=== PATIENT | female | born 1935 | race Caucasian/White ===

== ENCOUNTER → 2024-04-24 12:07 | Outpatient (REF) | payer MEDICARE, OTHER, SELFPAY ==
[2024-04-24 13:04] LABS: % Basophils 0.5 % (0-2); % Eosinophils 2.4 % (0-6); % Immature Granulocytes 0.3 % (0-0.5); % Lymphocytes 19.8 % (20.5-51.1); % Monocytes 7.5 % (1.7-9.3); % Neutrophils 69.5 % (42.2-75.2); Absolute Eosinophils 0.2 10^3/uL (0-0.7); Absolute Lymphocytes 1.5 10^3/uL (1.2-3.4); Absolute Monocytes 0.6 10^3/uL (0.1-0.6); Absolute Neutrophils 5.3 10^3/uL (1.4-6.5); Hematocrit 39.1 % (37.0-47.0); Hemoglobin 13.7 g/dL (12.0-16.0); Mean Corpuscular Hgb 30.1 pg (27.0-31.0); Mean Corpuscular Volume 85.9 fL (81.0-99.0); Mean Platelet Volume 10.1 fL (7.4-10.4); Nucleated Red Blood Cells % 0 %; Platelet Count 166 10^3/uL (130-400); Red Blood Cell Count 4.55 10^6/uL (4.20-5.40); Red Cell Dist. Width 13.2 % (11.5-14.5); White Blood Cell Count 7.6 10^3/uL (4.8-10.8)
[2024-04-24 13:33] LABS: ALT (SGPT) 17 U/L (0-35); AST (SGOT) 23 U/L (14-36); Albumin 4.5 g/dl (3.5-5.0); Alkaline Phosphatase 81 U/L (38-126); Blood Urea Nitrogen 19 mg/dl (7-17); Calcium 9.4 mg/dl (8.4-10.2); Carbon Dioxide 25 mmol/L (22-30); Chloride 96 mmol/L (98-107); Glucose 104 mg/dl (70-99); HDL Cholesterol 73 mg/dl; LDL Cholesterol, Calculated 66 mg/dl; Potassium 4.7 mmol/L (3.5-5.1); Sodium 134 mmol/L (135-145); Total Cholesterol 163 mg/dl (50-199); Total Protein 6.8 g/dl (6.3-8.2); Triglyceride 120 mg/dl (10-149); Very Low Density Lipoprotein 24 mg/dl (0-30); eGFR > 60.00
[2024-04-24 13:58] LABS: TSH Reflex To Free T4 0.04 uIU/ml (0.47-4.68)
[2024-04-24 14:27] LABS: Free T4 1.18 ng/dl (0.78-2.19)
== END ==
LOC: REG 12:07
PROVIDERS: ATTENDING PHYSICIAN Internal Medicine; REFERRING PHYSICIAN Internal Medicine Critical Care Medicine
DX: I10 Essential (primary) hypertension (principal); M35.3 Polymyalgia rheumatica; M53.83 Other specified dorsopathies, cervicothoracic region; R73.9 Hyperglycemia, unspecified
CPT/HCPCS: 36415; 80053; 80061; 84439; 84443; 85025

== ENCOUNTER → 2024-05-15 11:34 | Outpatient (REF) | payer OTHER, SELFPAY | LOC: RAD 11:34 | PROVIDERS: ATTENDING PHYSICIAN Nurse Practitioner Adult Health; FAMILY PHYSICIAN Internal Medicine | DX: R06.02 Shortness of breath (principal) | CPT/HCPCS: 71046 ==

== ENCOUNTER → 2024-06-01 09:41 | Outpatient (REF) | payer OTHER, SELFPAY | LOC: RAD 09:41 | PROVIDERS: ATTENDING PHYSICIAN Surgery Vascular Surgery; FAMILY PHYSICIAN Internal Medicine | DX: I72.8 Aneurysm of other specified arteries (principal) | CPT/HCPCS: 74174; Q9967 ==

== ENCOUNTER → 2024-06-05 13:24 | Outpatient (REF) | payer OTHER, SELFPAY | LOC: RAD 13:24 | PROVIDERS: ATTENDING PHYSICIAN Internal Medicine | DX: E05.90 Thyrotoxicosis, unspecified without thyrotoxic crisis or storm (principal) | CPT/HCPCS: 76536 ==

== ENCOUNTER 2024-06-07 03:04 | Inpatient (IN) | payer OTHER, SELFPAY ==
[2024-06-06 20:24] VITALS: BP 141/68
--- NOTE | 2024-06-06 20:24 | ED.GENMED ---
ED Provider Triage
<Rebecca Momin PA-C - Last Filed: 06/06/24 20:31>
-
Patient seen by provider in Triage?: Seen in Triage
Attestation: A medical screening examination has been initiated by a qualified medical provider. Based on the assessment performed at this time, it has been determined that an emergent medical condition may exist and the patient has been informed
that further medical evaluation and possible additional diagnostic testing may be needed.
HPI: 88yoF c/o flu-like symptoms starting yesterday. C/o fevers up to 101 and chills. C/o slight dyspnea. Pulse ox low at 60% at home. Home COVID test negative. Hx of COPD and bronchiectasis.
GENERAL: Alert , in no apparent distress
EYE: No visual abnormalities.
NECK: Trachea midline
ENT: No visible abnormalities.
LUNGS: No acute respiratory distress
NEUROLOGICAL: Alert and oriented
SKIN: Skin intact. No visible changes.
MUSCULOSKELETAL: Moving extremities normally
PSYCH: Normal and appropriate interaction.
This is a medical evaluation conducted in person to initiate diagnostic evaluation and provide initial therapeutics. Please see further documentation by the treating clinician.
Pulse ox 79-80% in triage. Cardiac labs, EKG, COVID/flu swab, and CXR ordered. Patient sent directly to ED exam room.
History of Present Illness
<Rebecca Momin PA-C - Last Filed: 06/06/24 20:31>
General
Chief Complaint: Breathing Problem
Time Seen by Provider: 06/06/24 21:04
<Bryce Bennett DO - Last Filed: 06/07/24 02:12>
General
Source: patient and family
History of Present Illness
History of Present Illness:
88-year-old female presents with shortness of breath and hypoxia. The patient noticed that she had had increased shortness of breath with exertion. Family states that she knows that she was winded with just minor walking and tried measuring her
pulse ox. They had a measurement of 60%. Patient reports a fever of 101 at home but is afebrile on arrival here. Patient denies chest pain. She does have a history of bronchiectasis and follows with pulmonology. Denies leg swelling. Denies
hemoptysis. Patient also admits that she is being treated with Macrobid for UTI.
Past History
<Rebecca Momin PA-C - Last Filed: 06/06/24 20:31>
Past History
ED Past Medical History: GERD, HTN and Other (PMR, arthritis, spinal stenosis)
ED Past Surgical History: Bowel resection and Orthopedic; Negative Appendectomy
Social History
Tobacco: Former smoker
Alcohol: None
Drug: None
Personal:
Living: alone
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
Family History
Family History: Hypertension
<Bryce Bennett DO - Last Filed: 06/07/24 02:12>
Past History
ED Past Medical History: Other (PMR, arthritis, spinal stenosis, restrictive lung disease, bronchiectasis)
Phy Exam
<Bryce Bennett DO - Last Filed: 06/07/24 02:12>
Physical Exam
Physical Exam:
CONSTITUTIONAL Patient alert and oriented to person, place and time. Well-appearing. Vital signs reviewed. Hypoxia to 85% on room air noted
HEAD atraumatic, normocephalic.
EYES eyelids normal to inspection, Extraocular muscles intact, Conjunctiva normal, Sclera normal.
NECK normal range of motion, Trachea midline, no jugular venous distention.
RESPIRATORY CHEST No respiratory distress noted, Chest expansion equal, wheezes and crackles noted bilaterally
CARDIOVASCULAR regular rate and rhythm, Heart sounds normal.
ABDOMEN abdomen nontender, Bowel sounds normal. No distention.
BACK normal inspection, no obvious deformities
UPPER EXTREMITY range of motion normal, Motor strength normal, no cyanosis, no edema.
LOWER EXTREMITY range of motion normal, Motor strength normal, no cyanosis, no edema.
NEURO Speech normal, No focal motor deficits, Rosemary coma scale 15, Memory normal, Cranial Nerves intact to screening exam.
SKIN skin warm, dry, and normal in color.
Scores
<Bryce Bennett DO - Last Filed: 06/07/24 02:12>
Heart Failure Risk
Heart Failure Risk Score: Yes
History of Stroke or TIA: No
History of intubation for respiratory distress: No
Heart rate on ED arrival >/= 110: No
SaO2 <90% on arrival on room air: Yes
HR >/=110 during 3min walk test (or too ill to perform test): Yes
ECG has acute ischemic changes: No
Urea >/=12mmol/L (BUN 33.6mg/dL): No
Serum CO2>/=35mmol/L: No
Troponin I or T elevated to GA Level (0.4mg/dL): No
NT-proBNP >/=5,000ng/L (5,000pg/ml): No
HF Risk Score: 3
Admission Status: HIGH RISK 15.9% Consider SNF treatment or admission to hospital
Course
<Rebecca Momin PA-C - Last Filed: 06/06/24 20:31>
Orders/Labs/Results
Orders:
Orders
06/06/24 20:27
Electrocardiogram (*1) Urgent
Reason for Study: Shortness of Breath
EKG- Treatment ONCE
CR Chest - 2 Views Urgent
Comment:
Reason For Exam: SOB
06/06/24 20:35
COVID-19 Antigen Urgent
Source: Nasal Swab
Complete Blood Count/With Diff Urgent
Comprehensive Metabolic Panel Urgent
NT-proBNP Urgent
Comment: ADD ON
Troponin I Urgent
Influenza A+B Rapid Molecular Urgent
CHRISTIAN Source: Nasal Swab
Specimen Description:
06/06/24 22:05
Add On- LAB Urgent
Tests Added?: bnp
06/06/24 22:29
Ipratropium/Albuterol Sulfate [Duoneb] 3 ml INH R NOW STA
06/06/24 23:27
Furosemide [Lasix] 40 mg IV NOW STA
06/06/24 23:43
Urinalysis Reflex To Culture Urgent
Date Specimen was Collected: 06/06/24
Time Specimen was Collected: 23:54
06/07/24 00:10
Urine Microscopic Reflex Cult Urgent
Urine Culture Urgent
CHRISTIAN Source: U
Specimen Description:
Date Specimen was Collected: 06/06/24
Time Specimen was Collected: 23:54
06/07/24 00:48
Dexamethasone Sod Phosphate [Decadron] 10 mg IV NOW STA
06/07/24 01:04
CefTRIAXone [Rocephin] 1,000 mg IV NOW STA
Abnormal Lab Results
06/06/24 06/07/24
20:35 00:10
WBC 15.1 H 10^3/uL
(4.8-10.8)
RBC 4.18 L 10^6/uL
(4.20-5.40)
Abs Immat Gran (auto) 0.1 H 10^3/uL
(0-0.05)
Absolute Neuts (auto) 13.3 H 10^3/uL
(1.4-6.5)
Absolute Lymphs (auto) 1.1 L 10^3/uL
(1.2-3.4)
Neutrophils % 87.7 H %
(42.2-75.2)
Lymphocytes % 7.3 L %
(20.5-51.1)
Sodium 130 L mmol/L
(135-145)
Chloride 96 L mmol/L
(98-107)
BUN 24 H mg/dl
(7-17)
Glucose 173 H mg/dl
(70-99)
Leukocyte Esterase Rfl 2+ A
(Negative)
Urine RBC 3-6 A /HPF
(0-2)
Urine WBC (Reflex) >100 A /HPF
(0-5)
Urine Bacteria (Reflex) Many A
(Negative)
06/06/24 20:35
06/06/24 20:35
Vital Signs
Initial and Last Documented VS:
Initial Vital Signs
Temp Pulse Resp BP Pulse Ox
98.7 F 79 18 141/68 80
06/06/24 20:24 06/06/24 20:24 06/06/24 20:24 06/06/24 20:24 06/06/24 20:24
Last Documented Vital Signs
Temp Pulse Resp BP Pulse Ox
98.7 F 74 15 115/54 95
06/06/24 20:24 06/06/24 23:34 06/06/24 23:15 06/06/24 23:34 06/06/24 23:15
<Bryce Bennett, DO - Last Filed: 06/07/24 02:12>
Orders/Labs/Results
Orders:
Orders
06/06/24 20:27
Electrocardiogram (*1) Urgent
Reason for Study: Shortness of Breath
EKG- Treatment ONCE
CR Chest - 2 Views Urgent
Comment:
Reason For Exam: SOB
06/06/24 20:35
COVID-19 Antigen Urgent
Source: Nasal Swab
Complete Blood Count/With Diff Urgent
Comprehensive Metabolic Panel Urgent
NT-proBNP Urgent
Comment: ADD ON
Troponin I Urgent
Influenza A+B Rapid Molecular Urgent
CHRISTIAN Source: Nasal Swab
Specimen Description:
06/06/24 22:05
Add On- LAB Urgent
Tests Added?: bnp
06/06/24 22:29
Ipratropium/Albuterol Sulfate [Duoneb] 3 ml INH R NOW STA
06/06/24 23:27
Furosemide [Lasix] 40 mg IV NOW STA
06/06/24 23:43
Urinalysis Reflex To Culture Urgent
Date Specimen was Collected: 06/06/24
Time Specimen was Collected: 23:54
06/07/24 00:10
Urine Microscopic Reflex Cult Urgent
Urine Culture Urgent
CHRISTIAN Source: U
Specimen Description:
Date Specimen was Collected: 06/06/24
Time Specimen was Collected: 23:54
06/07/24 00:48
Dexamethasone Sod Phosphate [Decadron] 10 mg IV NOW STA
06/07/24 01:04
CefTRIAXone [Rocephin] 1,000 mg IV NOW STA
Abnormal Lab Results
06/06/24 06/07/24
20:35 00:10
WBC 15.1 H 10^3/uL
(4.8-10.8)
RBC 4.18 L 10^6/uL
(4.20-5.40)
Abs Immat Gran (auto) 0.1 H 10^3/uL
(0-0.05)
Absolute Neuts (auto) 13.3 H 10^3/uL
(1.4-6.5)
Absolute Lymphs (auto) 1.1 L 10^3/uL
(1.2-3.4)
Neutrophils % 87.7 H %
(42.2-75.2)
Lymphocytes % 7.3 L %
(20.5-51.1)
Sodium 130 L mmol/L
(135-145)
Chloride 96 L mmol/L
(98-107)
BUN 24 H mg/dl
(7-17)
Glucose 173 H mg/dl
(70-99)
Leukocyte Esterase Rfl 2+ A
(Negative)
Urine RBC 3-6 A /HPF
(0-2)
Urine WBC (Reflex) >100 A /HPF
(0-5)
Urine Bacteria (Reflex) Many A
(Negative)
06/06/24 20:35
06/06/24 20:35
Vital Signs
Initial and Last Documented VS:
Initial Vital Signs
Temp Pulse Resp BP Pulse Ox
98.7 F 79 18 141/68 80
06/06/24 20:24 06/06/24 20:24 06/06/24 20:24 06/06/24 20:24 06/06/24 20:24
Last Documented Vital Signs
Temp Pulse Resp BP Pulse Ox
98.7 F 74 15 115/54 95
06/06/24 20:24 06/06/24 23:34 06/06/24 23:15 06/06/24 23:34 06/06/24 23:15
<Bryce Bennett DO - Last Filed: 06/07/24 02:12>
MDM/Problems Addressed
Differential Diagnosis Includes:
Pneumonia, PE, CHF, bronchitis, pyelonephritis
MDM/Problems Addressed:
Acute CHF, hypoxia, bronchiectasis, urinary tract infection
<Bryce Bennett DO - Last Filed: 06/07/24 02:12>
*Radiology
Radiology exam reviewed: radiology read reviewed
*Pulse Oximetry
Patient hypoxic: yes
*EKG
Interpreted by ED Provider?: Yes
Interpretation: normal
Rate: normal
Interval: normal interval
QRS Pattern: normal QRS
Ischemia: no ischemia
*Mirror Painter Interpretation
Rate: normal
Interpretation: normal
Rhythm: sinus
*Critical Care Note
Total Time (30-74mins, 75-104mins- exclusive of procedures): Not Applicable
Data Reviewed
Review of Other/Old Records Reveals: Records and Discharge Summary (Discharge summary reviewed from August 2018)
Source: patient
<Bryce Bennett DO - Last Filed: 06/07/24 02:12>
Patient Management
Discussion with other providers: Hospitalist
Escalation/DeEscalation of care consider admission/obs:
88-year-old female presents with shortness of breath. Found be hypoxic required oxygen. No signs of RV failure but BNP is elevated. Reports fever at home but she is afebrile here. No infiltrates noted on chest x-ray by radiology. Her white
count is elevated but patient has been treated for UTI with Macrobid. Given her age I do feel that she is better warranted on ceftriaxone or an alternative. Admit. Dose of steroids given in light of her long history. Suspect her hypoxia is
multifactorial
ED Attending Note
<Rebecca Momin PA-C - Last Filed: 06/06/24 20:31>
-
Portions of this chart may have been created with voice recognition software.� Occasional wrong word or��sound alike� substitutions may have occurred due to the inherent limitations of voice recognition software.
Discharge Plan
Departure
Patient Disposition: Admit
Date of Disposition: 06/07/24
Time of Disposition: 00:18
Presentation/result/management discussed w/ accepting MD/DO: Hospitalist
Discharge Problem:
Hypoxia, CHF (congestive heart failure), Bronchiectasis
Prescriptions:
No Action
biotin 5 MG capsule
5 mg PO DAILY Qty: 0
B-complex with vitamin C 1 CAPLET tablet
1 cap PO DAILY Qty: 0
[id number]-ast [MegaRed [place]-3 Krill Oil] 1 EACH capsule
1 ea PO DAILY Qty: 0
cholecalciferol (vitamin D3) 1,000 UNITS tablet
1,000 units PO DAILY
aspirin 81 MG tablet,delayed release (DR/EC)
81 mg PO DAILY
losartan 25 MG tablet
25 mg PO DAILY
guaifenesin [Mucinex] 1,200 MG tablet extended release 12hr
600 mg PO PRN PRN (Reason: cough)
Align (B.infantis) 4 MG capsule
4 mg PO DAILY
calcium carb-mag ox-zinc sulf 1 EACH tablet
1 ea PO DAILY
nitrofurantoin 100 mg Capsule
100 mg PO BID
Patient Comments:
for UTI
albuterol sulfate 90 mcg/actuation Hfa Aerosol Inhaler
2 puff INHALATION QID PRN (Reason: SOB/wheeze )
Trelegy Ellipta 100-62.5-25 mcg Blister With Device
1 inh INHALATION DAILY
Referrals:
Josette Sigala MD [Family Provider] -
Interventions
Interventions:
*Risk Screen - Suicide Last Done: 06/06/24 20:24
*General Assessment Last Done: 06/06/24 20:24
*Neglect/Abuse Screening Last Done: 06/06/24 23:20
ED- Fall Risk Assessment Last Done: 06/06/24 23:20
*ED COVID-19 Vaccine History Last Done: 06/06/24 20:24
ED- Cardiac Assessment Last Done: 06/06/24 23:20
ED- Pulmonary Assessment Last Done: 06/06/24 23:20
Discharge Date and Time
Print Language: SCOTTISH
[2024-06-06 20:40] VITALS: BP 157/75
[2024-06-06 20:54] LABS: % Basophils 0.4 % (0-2); % Eosinophils 0.8 % (0-6); % Immature Granulocytes 0.4 % (0-0.5); % Lymphocytes 7.3 % (20.5-51.1); % Monocytes 3.4 % (1.7-9.3); % Neutrophils 87.7 % (42.2-75.2); Absolute Basophils 0.1 10^3/uL (0-0.2); Absolute Eosinophils 0.1 10^3/uL (0-0.7); Absolute Immature Granulocytes 0.1 10^3/uL (0-0.05); Absolute Lymphocytes 1.1 10^3/uL (1.2-3.4); Absolute Monocytes 0.5 10^3/uL (0.1-0.6); Absolute Neutrophils 13.3 10^3/uL (1.4-6.5); Hemoglobin 12.6 g/dL (12.0-16.0); Mean Corp Hgb Conc. 34.1 g/dL (33.0-37.0); Mean Corpuscular Hgb 30.1 pg (27.0-31.0); Mean Corpuscular Volume 88.5 fL (81.0-99.0); Nucleated Red Blood Cells % 0 %; Platelet Count 146 10^3/uL (130-400); Red Blood Cell Count 4.18 10^6/uL (4.20-5.40); Red Cell Dist. Width 13.5 % (11.5-14.5); White Blood Cell Count 15.1 10^3/uL (4.8-10.8)
[2024-06-06 21:08] VITALS: BP 142/65
[2024-06-06 21:12] LABS: COVID-19 Antigen Negative (Negative)
[2024-06-06 21:13] LABS: ALT (SGPT) 17 U/L (0-35); AST (SGOT) 21 U/L (14-36); Alkaline Phosphatase 65 U/L (38-126); Blood Urea Nitrogen 24 mg/dl (7-17); Carbon Dioxide 23 mmol/L (22-30); Chloride 96 mmol/L (98-107); Glucose 173 mg/dl (70-99); Sodium 130 mmol/L (135-145); Total Bilirubin 1.2 mg/dl (0.2-1.3); Total Protein 6.4 g/dl (6.3-8.2); eGFR > 60.00
[2024-06-06 21:18] LABS: Troponin I 0.012 ng/ml
[2024-06-06 22:00] VITALS: BP 134/59
[2024-06-06] MEDS: DUONEB 3 ML INH (22:50)
[2024-06-06 22:54] LABS: NT-proBNP 1520 pg/ml
[2024-06-06 23:00] VITALS: BP 150/64
[2024-06-06 23:30] VITALS: BP 115/54
[2024-06-06] MEDS: LASIX 40 MG IV (23:34)
[2024-06-07] VITALS (8 sets, daily range): BP systolic 108–132; BP diastolic 51–76; BMI 27.7
[2024-06-07 00:28] LABS: Urine Albumin Negative (Neg - Trace); Urine Bilirubin Negative (Negative); Urine Character Clear (Clear); Urine Color Yellow; Urine Glucose Negative (Negative); Urine Ketone Negative (Negative); Urine Leukocyte 2+ (Negative); Urine Nitrite Negative (Negative); Urine Occult Blood Negative (Negative); Urine Urobilinogen Negative (Neg - 1+)
[2024-06-07 00:55] LABS: Urine Bacteria Many (Negative); Urine Squamous Cell >30 /LPF (Few); Urine White Cell >100 /HPF (0-5)
[2024-06-07] MEDS: DECADRON 10 MG IV (00:57)
[2024-06-07] MEDS: ROCEPHIN 1000 MG IV ×2 (01:51→23:38)
--- NOTE | 2024-06-07 02:46 | HPS.HSE ---
Family Physician
-
Family Physician: Josette Sigala
Chief Complaint
-
SOB, Myalgias
History of Present Illness
Patient is an 88y F with PMH significant for COPD and bronchiectasis who presents to ED complaining of chills, myalgias and SOB. Patient states that started to feel poorly about 2 days ago. She had diffuse muscle aches and shaking chills at
home. She took some Aleve and felt improved for a time. Not much in the way of cough / mucus. No N/V/D. She has had some dysuria and reports recurrent UTIs - was started on Macrobid a few days ago for this and feels that these symptoms are
better.
Today patient felt extremely fatigued and had difficulty getting up and around. She was walking around the senior facility where she lives and noted that she became significantly short of breath.
She presented to the ED for further evaluation and treatment.
Patient states that multiple residents of her building have recently had COVID / Flu.
In the ED, patient is sleeping comfortably / lying supine at the time of my exam.
She states that she is feeling improved from admission. On initial arrival, patient had SpO2 of 80% on room air - currently in the low 90s on supplemental oxygen.
Medical History
Past Medical History
Past Medical History: Reports Other
Additional Past Medical History:
COPD
Bronchiectasis
Spinal Stenosis
Hypertension
Diverticular Disease
KALI
Past Surgical History: Reports Other
Additional Past Surgical History:
Left TKA Repair / Re-do
Right TKA
Left Rotator Cuff
Sigmoid Resection (tics)
Ventral Hernia Repair
T&A
Cataracts
Social History
Tobacco: Former Smoker (Quit > 10 years ago.)
Alcohol: Occasional
Drug: None
Family History
Family History: Not pertinent
Allergies / Home Medications
Allergies reflects when Allergies were last updated in [employer].
Home Medications with original date entered in [employer]
Allergy/Medication List:
Allergies
Allergy/AdvReac Type Severity Reaction Status Date / Time
vancomycin Allergy Itching, Verified 02/06/20 07:14
Hives
Home Medications
B-complex with vitamin C 1 cap PO DAILY ##0 04/01/16
biotin 5 mg capsule 5 mg PO DAILY ##0 04/01/16
krill 300 mg-omega 3 90 mg-dha 24 mg-epa 50 cs-ezigijd-kwxdr capsule (MegaRed [place]-3 Krill Oil) 1 ea PO DAILY ##0 04/01/16
cholecalciferol (vitamin D3) 25 mcg (1,000 unit) tablet 1,000 units PO DAILY 07/13/18
Bifidobacterium infantis 4 mg capsule (Align (B.infantis)) 4 mg PO DAILY 02/05/20
aspirin 81 mg tablet,delayed release 81 mg PO DAILY 02/05/20
calcium 333 mg (carbonate)-magnesium 133 mg-zinc 5 mg (sulfate) tablet 1 ea PO DAILY 02/05/20
guaifenesin 1,200 mg tablet, extended release 12 hr (Mucinex) 600 mg PO PRN PRN cough 02/05/20
losartan 25 mg tablet 25 mg PO DAILY 02/05/20
albuterol sulfate 90 mcg/actuation aerosol inhaler 2 puff inhalation QID PRN SOB/wheeze 06/06/24
fluticasone fur. 100 mcg-umeclid 62.5 mcg-vilant 25 mcg inhalat.powder (Trelegy Ellipta) 1 inh inhalation DAILY 06/06/24
nitrofurantoin 100 mg capsule 100 mg PO BID 06/06/24
Review of Systems
-
History Source: Patient
A 12 point ROS was completed and negative except as noted: Yes
Constitutional: Reports Fatigue and Chills; Denies Fever
EENT: Denies Sore Throat
Respiratory: Reports Trouble Breathing; Denies Cough
Cardiac: Denies Chest Pain or Palpitations
Abdomen/GI: Denies Abdominal Pain, Nausea, Vomiting or Diarrhea
: Denies Dysuria or Frequency
Musculoskeletal: Reports Joint Pain and Muscle Pain; Denies Edema
Neurological: Reports Headache; Denies Dizzy
Psych: Denies Depression or Anxiety
Physical Exam
Vital Signs
Vital Signs
Temp Pulse Resp BP Pulse Ox
98.7 F 67 19 132/52 93
06/06/24 20:24 06/07/24 02:15 06/07/24 02:15 06/07/24 01:00 06/07/24 01:30
Physical Exam
General: Other (88y F in no acute distress.)
HEENT: Moist mucous membranes and PERRLA
Respiratory: Other (Bibasilar rales about 1/3 up. Scattered expiratory wheezes.)
Cardiac: S1/S2, Regular Rhythm and Murmur (II/ TATIANA)
GI: Soft, Non Tender, Non Distended and Normal Bowel Sounds
Musculoskeletal: No Clubbing, No Cyanosis and No Edema
Neuro: AO x 3
Laboratory Results
-
06/06/24 20:35
06/06/24 20:35
Laboratory Results
Total Bilirubin 1.2 mg/dl (0.2-1.3) 06/06/24 20:35
AST 21 U/L (14-36) 06/06/24 20:35
ALT 17 U/L (0-35) 06/06/24 20:35
Alkaline Phosphatase 65 U/L (38-126) 06/06/24 20:35
Troponin I 0.012 ng/ml 06/06/24 20:35
Impression/Plan
-
A/P: Patient is an 88y F with PMH significant fro COPD and bronchiectasis who presents to ED complaining of SOB, myalgias and fatigue.
Bilateral Pneumonia
Acute Hypoxemic Respiratory Failure secondary to the above
Bronchiectasis with Acute Flare
- Admit for further evaluation and treatment.
- Patient reports recent myalgias / fatigue / chills that suggest infectious etiology.
- COVID / influenza negative in the ED.
- CXR with bilateral patchy infiltrates - ? edema v atypical pneumonia.
- CAP antibiotics for now.
- Nebs, supportive care, supplemental O2.
- Follow for clinical improvement.
- Update Echo to rule out component of CHF - though history sounds more c/w infectious etiology and no edema, abdominal distention, JVD, etc by exam.
COPD without Acute Exacerbation
- No significant wheezing appreciated on exam.
- Hold on systemic steroids for now.
- Continue inhaled medications, albuterol PRN, etc.
- Follow for clinical changes.
Benign Hypertension
- Stable. Continue home meds with holding parameters.
Questionable UTI
- Patient recently started on Macrobid for recurrent urinary symptoms - now improved.
- Current CAP abx should cover any typical urinary pathogen.
- Follow-up culture data.
DVT Prophylaxis: Subcut heparin
Code Status: Full
--- NOTE | 2024-06-07 05:09 | TRANSFER ---
pt arrived from ED via stretcher accompanied by ED staff. pt ambulated independently from stretcher to bed without issue. pt AAOx3, VSS, pulse ox at 95% on 4L. call bourgeois within reach, POC ongoing.
[2024-06-07 06:14] LABS: Hematocrit 39.8 % (37.0-47.0); Hemoglobin 13.5 g/dL (12.0-16.0); Mean Corp Hgb Conc. 33.9 g/dL (33.0-37.0); Mean Corpuscular Hgb 30.8 pg (27.0-31.0); Mean Corpuscular Volume 90.9 fL (81.0-99.0); Mean Platelet Volume 9.8 fL (7.4-10.4); Platelet Count 161 10^3/uL (130-400); Red Blood Cell Count 4.38 10^6/uL (4.20-5.40); Red Cell Dist. Width 13.4 % (11.5-14.5); White Blood Cell Count 11.8 10^3/uL (4.8-10.8)
[2024-06-07 06:34] LABS: Blood Urea Nitrogen 24 mg/dl (7-17); Calcium 9.4 mg/dl (8.4-10.2); Carbon Dioxide 25 mmol/L (22-30); Chloride 97 mmol/L (98-107); Estimated Creatinine Clearance 45 ml/min; Glucose 183 mg/dl (70-99); Potassium 4.3 mmol/L (3.5-5.1); Sodium 135 mmol/L (135-145); eGFR > 60.00
[2024-06-07 06:43] LABS: Troponin I 0.013 ng/ml
[2024-06-07 07:04] LABS: TSH Reflex To Free T4 0.97 uIU/ml (0.47-4.68)
[2024-06-07] MEDS: NON-FORMULARY ITEM 1 UNIT INH (07:39)
[2024-06-07] MEDS: DUONEB 3 ML INH ×4 (07:39→19:29)
[2024-06-07] MEDS: MUCINEX 600 MG PO ×2 (08:41→21:06)
[2024-06-07] MEDS: HEPARIN 5000 UNITS SC ×2 (08:41→21:06)
[2024-06-07] MEDS: ASPIR LOW (ENTERIC COATED) 81 MG PO (08:41)
[2024-06-07] MEDS: VIBRAMYCIN 100 MG PO ×2 (08:41→21:06)
[2024-06-07] MEDS: COZAAR 25 MG PO (08:41)
--- NOTE | 2024-06-07 10:23 | CON.PUL ---
Consultation
Consultation Request
Date/Time Consultation Requested: 06/07/2024-10 AM
Date/Time Consultation Performed: 06/07/2024-10 AM
Requesting Provider: Hospitalist
Performing Provider: Dr. Alves
Reason for Consultation: Shortness of breath
Medical History
-
Chief Complaint: Shortness of breath
History of Present Illness:
88-year-old female with underlying COPD and bronchiectasis as well as hypertension, KALI, diverticular disease who presented with fevers, chills, myalgias and shortness of breath admitted with COPD/bronchiectasis flare-pulmonary consulted for
COPD/bronchiectasis 06/07/2024.. Patient states that she's had progressive shortness of breath but no hemoptysis, some mild chest congestion, minimal productive cough, no pleurisy, abdominal pain, leg swelling or focal weakness.
Past Medical History
Past Medical History: None ( COPD. Bronchiectasis. Pulmonary nodule-3 mm right upper lobe incidental 2020 spinal stenosis. Hypertension. Diverticular disease. History KALI-bronchoscopy 07/2018. PMR. GERD. ESTEPHANIA.)
Past Surgical History: None (Left TKA repair/redo. Right TKA. Left rotator cuff. Sigmoid resection for diverticulitis. Ventral hernia repair. Tonsillectomy. Cataracts.)
Social History
Tobacco: Former Smoker (Quit over 10 years ago)
Alcohol: Occasional
Drug: None
Living: With Family
Occupational Exposures: No known asbestos exposure
Environmental Exposures: No known tuberculosis exposure
Allergies / Home Medications
Allergies
Allergy/AdvReac Type Severity Reaction Status Date / Time
vancomycin Allergy Itching, Verified 02/06/20 07:14
Hives
Home Medications
�Medication �Instructions �Recorded �Confirmed �Last Taken �Type
B-complex with vitamin C 1 cap PO DAILY ##0 04/01/16 06/06/24 02/05/20 08:00 History
biotin 5 mg capsule 5 mg PO DAILY ##0 04/01/16 06/06/24 02/05/20 08:00 History
krill 300 mg-omega 3 90 mg-dha 24 1 ea PO DAILY ##0 04/01/16 06/06/24 1 Week Ago History
mg-epa 50 gu-edtmsfi-jwdhy capsule ~01/30/20
(MegaRed [place]-3 Krill Oil)
cholecalciferol (vitamin D3) 25 1,000 units PO DAILY 07/13/18 06/06/24 02/05/20 08:00 History
mcg (1,000 unit) tablet
Bifidobacterium infantis 4 mg 4 mg PO DAILY 02/05/20 06/06/24 02/05/20 08:00 History
capsule (Align (B.infantis))
aspirin 81 mg tablet,delayed 81 mg PO DAILY 02/05/20 06/06/24 1 Week Ago History
release ~01/30/20
calcium 333 mg 1 ea PO DAILY 02/05/20 06/06/24 02/05/20 08:00 History
(carbonate)-magnesium 133 mg-zinc
5 mg (sulfate) tablet
guaifenesin 1,200 mg tablet, 600 mg PO PRN PRN cough 02/05/20 06/06/24 02/05/20 08:00 History
extended release 12 hr (Mucinex)
losartan 25 mg tablet 25 mg PO DAILY 02/05/20 06/06/24 02/06/20 07:30 History
albuterol sulfate 90 mcg/actuation 2 puff inhalation QID PRN 06/06/24 06/06/24 Unknown History
aerosol inhaler SOB/wheeze
nitrofurantoin 100 mg capsule 100 mg PO BID 06/06/24 06/06/24 Unknown History
fluticasone fur. 100 mcg-umeclid 1 inh inhalation DAILY 06/07/24 06/07/24 1 Day Ago History
62.5 mcg-vilant 25 mcg Lung/Breathing Issues ~06/06/24
inhalat.powder (Trelegy Ellipta)
Review of Systems
-
Unable to Obtain full review of systems at this time due to: Other (Per HPI)
Vitals / Labs / Diagnostic Testing
Vital Signs
Temp Pulse Resp BP Pulse Ox
97.6 F 70 20 132/68 100
06/07/24 07:59 06/07/24 08:41 06/07/24 07:59 06/07/24 08:41 06/07/24 07:59
Lab Data
06/07/24 05:57
06/07/24 05:57
Microbiology
06/06/24 20:35 Nasal Swab Influenza Types A & B (JOSIE) - Final
Negative for Influenza A & B, NAAT
Negative results must be combined with clinical observations
and patient history.
Nucleic Acid Amplification test (NAAT)performed on the
[employer] platform.
Diagnostic Testing:
Physical Exam
-
Exam:
Well-nourished and well-developed in no apparent distress
HEENT-atraumatic, normocephalic
Neck-supple, no JVD, no bruit
Heart-regular rate and rhythm-no murmurs, rubs or gallops
Chest with diminished breath sounds, prolonged expiratory time, rare crackles and some rhonchi
Back without tenderness
Abdomen-soft, nontender, nondistended, no hepatosplenomegaly
Extremities-no cyanosis, clubbing, edema and good peripheral pulses
Integument-intact, no rashes, lesions or ecchymosis
Neurology-alert and oriented, nonfocal motor and sensory exam
Assessment
-
88-year-old female with underlying COPD and bronchiectasis as well as hypertension, KALI, diverticular disease who presented with fevers, chills, myalgias and shortness of breath admitted with COPD/bronchiectasis flare-pulmonary consulted for
COPD/bronchiectasis 06/07/2024.
COPD/bronchiectasis with acute exacerbation
Mucous plugs
Mild CHF-EF unknown
Leukocytosis-WBC 15.1
Hyperglycemia
Conditions present prior to admission:
COPD-followed by Dr. Alves-maintained on Trelegy, Mucinex, and mucus clearing devices
Bronchiectasis.
Pulmonary nodule-3 mm right upper lobe incidental 2020 spinal stenosis.
Hypertension.
Diverticular disease.
History KALI-bronchoscopy 07/2018.
PMR.
GERD.
ESTEPHANIA.
Left TKA repair/redo. Right TKA. Left rotator cuff. Sigmoid resection for diverticulitis. Ventral hernia repair. Tonsillectomy. Cataracts.
Plan
Respiratory decompensation, likely a combination of COPD/bronchiectasis and possibly fluid overload/CHF.
Supplemental oxygen as needed.
Assess discharge supplemental oxygen needs prior to discharge.
Trelogy 100 continues in addition to DuoNeb nebs as needed.
Observe off steroids for now
Mucolytic's
And mucus clearing devices.
Try vest therapy..
Check cultures.
Sputum culture if able to produce
Empiric antibiotics-ceftriaxone and doxycycline.
Follow leukocytosis
Gentle diuresis.
Monitor serum creatinine, intake, output, lower extremity edema and replace electrolytes as needed.
Check echocardiogram.
Consider cardiology evaluation.
Monitor blood sugar.
Insulin supplementation as needed.
DVT prophylaxis-on subcutaneous heparin.
Nutrition
Early mobilization
Outpatient pulmonary follow-up
Last seen by Dr. Alves 12/14/2023 and subsequently nurse practitioner-Lidia Russell 05/09/2024-Has appointment at 2:30 PM,Follow-up, sooner after this hospitalization
Diagnostic data:
Chest x-ray 05/15/2024-[facility]
Chest x-ray 06/06/2024-mild CHF
CT chest 07/21/18-mild bronchiectasis inferior aspect of both lower lobes, right greater than left, stable compared to July 11, 2018 and progressed compared to January 2016, mild peripheral increased interstitial markings, likely mild interstitial
fibrosis without significant honeycombing.
Chest x-ray 05/27/20-[facility]
Chest x-ray 12/08/20-[facility]-NAD
CT chest angiogram 12/08/20-[facility]-no acute pulmonary embolism, mosaic attenuation. The lungs, suspicious for air trapping or emphysema, 1.6 cm peripheral calcified splenic artery aneurysm, 2.1 cm left upper lobe renal cysts, 3 mm
right upper lobe nodule. .
CT chest 12/22/21-stable 2.5 mm right middle lobe pulmonary nodule-comparison made to 07/21/18, suspected benign, new 13 mm bleb superior segment left lower lobe, stable mild bronchiectasis middle aspects of both lower lobes worse on the right than the
left-patient notified.
CT abdomen and pelvis 06/01/24-1.4 cm at heavily rim calcified splenic artery aneurysm, severe diverticulosis mild inflammatory interstitial pneumonitis and bronchiectasis in the lower lobes
PFT 05/09/24- FVC 1.76 or 90%, FEV1 1.51 or 106%, Ratio 86. TLC 2.97 or 66%, DLCO 9.02 or 52%, DLCO/VA 66%.
Bronchoscopy 08/02/18-Normal airway exam, thin white secretions throughout both lower lobes,
Bronchoalveolar lavage left lower lobe-KALI cultured, fungal negative, usual respiratory kezia
Eosinophils 12/27/20-200
Bronched 08/02/18- KALI
Echocardiogram 01/20/21-EF 60-65%, no significant valve disease,.
Data Reviewed
-
PFT: Report reviewed by me
EKG: Report reviewed by me
Radiology: Image personally visualized and interpreted and Report reviewed by me
CT Scan: Image personally visualized and interpreted and Report reviewed by me
Medical Tests (Nuc Med, Echo etc): Report reviewed by me
Labs: Labs reviewed by me
Old Records: Reviewed
Total Time Spent with Patient (in minutes): 65
[2024-06-07 13:13] LABS: Troponin I < 0.012 ng/ml
--- NOTE | 2024-06-07 13:13 | CM ---
CM met with Josette Mahoney at bedside to complete IA.
Catalina lives at [facility], a [facility] [place]. She is (I) amb and adls, has no DME or O2 at home; currently on O2 here. She is very active in the community, activities and has a lot of friends. Family is very supportive.
Plan: Discharge to home. CM will watch for O2 needs for discharge. Family will provide transport home when medically stable.
--- NOTE | 2024-06-07 14:13 | W.PN.HOSP.TC ---
Today's Communication/Plan
-
nonbillable note
Assessment / Plan
Assessment / Plan
ARF with hypoxia (pulse ox at home 60%) likely secondary to Bronchiectiasis flare with ?cap/?hf
--S/p IV dex 1 dose in the ED, no wheezing on exam, therefore, will not resume
-Mucolytics
-Incentive ifeanyi
-Wean o2 as tolerated
-IV Atb with ctx and doxy
-Will give dose of IV lasix now
-Consult Pulm
COPD unlikely an acute exacerbation
----No wheezing, hold systemic steroids for now
HT
-continue antihypertensive
UTI
-recurrent
-recently on treatment
-UA +, UCx pending, admits to Frequency
-Continue Ctx
-Will need to follow up with Uro as an outpatient
Anticipated Discharge: 24 - 48 hours
Subjective/Interval History
-
Date of Service: June 07, 2024
seen and examined
no new complaints
no acute overnight events
Objective Data
-
Labs:
Laboratory Results
06/07/24
05:57
WBC 11.8 H
Hgb 13.5
Hct 39.8
Plt Count 161
Sodium 135
Potassium 4.3
Chloride 97 L
Carbon Dioxide 25
BUN 24 H
Creatinine 0.8
Glucose 183 H
Calcium 9.4
Vital Signs:
Vital Signs
Temp Pulse Resp BP Pulse Ox
98 F 83 16 123/65 96
06/07/24 12:01 06/07/24 14:06 06/07/24 14:06 06/07/24 12:01 06/07/24 14:06
[2024-06-07] MEDS: LASIX 40 MG IV (15:50)
[2024-06-07] MEDS: MUCINEX 1200 MG PO (21:06)
[2024-06-07] MEDS: STERILE WATER FOR INJECTION 10 ML IV (23:39)
[2024-06-08] VITALS (7 sets, daily range): BP systolic 113–153; BP diastolic 52–74; PULSE 85; O2SAT 99; BMI 28.3
[2024-06-08] MEDS: MELATONIN 3 MG PO (00:17)
[2024-06-08] MEDS: DUONEB 3 ML INH ×4 (07:21→19:49)
[2024-06-08] MEDS: NON-FORMULARY ITEM 1 UNIT INH (07:22)
[2024-06-08] MEDS: VIBRAMYCIN 100 MG PO ×2 (08:41→20:14)
[2024-06-08] MEDS: COZAAR 25 MG PO (08:41)
[2024-06-08] MEDS: HEPARIN 5000 UNITS SC ×2 (08:42→20:15)
[2024-06-08] MEDS: ASPIR LOW (ENTERIC COATED) 81 MG PO (08:42)
[2024-06-08] MEDS: MUCINEX 1200 MG PO ×2 (08:42→20:15)
[2024-06-08] MEDS: FLUSH (NSS) 1 FLUSH IV (08:44)
[2024-06-08] MEDS: MUCINEX PO (09:30)
--- NOTE | 2024-06-08 09:57 | W.PN.PUL.V3 ---
Today's Communication / Plan
-
Wean oxygen
Increase activity
Continue nebulizers and inhalers
Finite course of antibiotics
Outpatient pulmonary follow-up
Assessment
-
88-year-old female with underlying COPD and bronchiectasis as well as hypertension, KALI, diverticular disease who presented with fevers, chills, myalgias and shortness of breath admitted with COPD/bronchiectasis flare-pulmonary consulted for
COPD/bronchiectasis 06/07/2024.
COPD/bronchiectasis with acute exacerbation
Mucous plugs
Mild CHF-EF unknown
Leukocytosis-WBC 15.1
Hyperglycemia
Conditions present prior to admission:
COPD-followed by Dr. Alves-maintained on Trelegy, Mucinex, and mucus clearing devices
Bronchiectasis.
Pulmonary nodule-3 mm right upper lobe incidental 2020 spinal stenosis.
Hypertension.
Diverticular disease.
History KALI-bronchoscopy 07/2018.
PMR.
GERD.
ESTEPHANIA.
Left TKA repair/redo. Right TKA. Left rotator cuff. Sigmoid resection for diverticulitis. Ventral hernia repair. Tonsillectomy. Cataracts.
Plan
Respiratory decompensation, likely a combination of COPD/bronchiectasis and possibly fluid overload/CHF
Respiratory status slowly improving
Supplemental oxygen as needed-currently 3 L - 95% saturation
Assess discharge supplemental oxygen needs prior to discharge.
Trelogy 100 continues in addition to DuoNeb nebs as needed.
Observe off steroids for now
Mucolytic's
And mucus clearing devices.
Continue vest therapy for an additional 24 hours-reports minimal additional mucus production
Cultures reviewed
Influenza negative
Urine culture unrevealing
Sputum culture if able to produce
Empiric antibiotics-ceftriaxone and doxycycline.
Follow leukocytosis
Continue gentle diuresis
Monitor serum creatinine, intake, output, lower extremity edema and replace electrolytes as needed.
Echocardiogram 06/07/2024-EF 65-70%, no valvular disease
Follow blood sugar
Insulin supplementation as needed.
DVT prophylaxis-on subcutaneous heparin.
Nutrition
Early mobilization
Outpatient pulmonary follow-up
Last seen by Dr. Alves 12/14/2023 and subsequently nurse practitioner-Lidia Russell 05/09/2024-Has appointment at 2:30 PM,Follow-up, sooner after this hospitalization
Diagnostic data:
Chest x-ray 05/15/2024-NA[facility]
Chest x-ray 06/06/2024-mild CHF
CT chest 07/21/18-mild bronchiectasis inferior aspect of both lower lobes, right greater than left, stable compared to July 11, 2018 and progressed compared to January 2016, mild peripheral increased interstitial markings, likely mild interstitial
fibrosis without significant honeycombing.
Chest x-ray 05/27/20-NA[facility]
Chest x-ray 12/08/20-[facility]-NAD
CT chest angiogram 12/08/20-[facility]-no acute pulmonary embolism, mosaic attenuation. The lungs, suspicious for air trapping or emphysema, 1.6 cm peripheral calcified splenic artery aneurysm, 2.1 cm left upper lobe renal cysts, 3 mm
right upper lobe nodule. .
CT chest 12/22/21-stable 2.5 mm right middle lobe pulmonary nodule-comparison made to 07/21/18, suspected benign, new 13 mm bleb superior segment left lower lobe, stable mild bronchiectasis middle aspects of both lower lobes worse on the right than the
left-patient notified.
CT abdomen and pelvis 06/01/24-1.4 cm at heavily rim calcified splenic artery aneurysm, severe diverticulosis mild inflammatory interstitial pneumonitis and bronchiectasis in the lower lobes
PFT 05/09/24- FVC 1.76 or 90%, FEV1 1.51 or 106%, Ratio 86. TLC 2.97 or 66%, DLCO 9.02 or 52%, DLCO/VA 66%.
Bronchoscopy 08/02/18-Normal airway exam, thin white secretions throughout both lower lobes,
Bronchoalveolar lavage left lower lobe-KALI cultured, fungal negative, usual respiratory kezia
Eosinophils 12/27/20-200
Bronched 08/02/18- KALI
Echocardiogram 01/20/21-EF 60-65%, no significant valve disease,.
Subjective Data
-
Date of Service:
Date of Service: June 08, 2024
Chief Complaint: Pulmonary Follow Up and Dyspnea Follow Up
Subjective:
Feels better, some mild chest congestion but cough mostly nonproductive, no chest pain or abdominal pain
Review of Systems
General: Other (Per HPI)
Objective Data
Data Reviewed
Vital Signs / I&O:
Vital Signs
Temp Pulse Resp BP Pulse Ox
97.7 F 72 20 153/74 100
06/08/24 08:10 06/08/24 08:10 06/08/24 08:10 06/08/24 08:41 06/08/24 08:10
Intake and Output
06/07/24 06/08/24 06/09/24
06:59 06:59 06:59
Intake Total 960 / 960
Output Total 450 / 450
Balance 510 / 510
SaO2: 100
Nasal Cannula flow liters per minute: 3
Physical Exam
General: Respiratory Distress (n) and Comfortable
HEENT: Normocephalic and Moist Mucous Membranes
Cardiovascular: Regular Rhythm
Respiratory: Clear (Diminished breath sounds and prolonged expiratory time), Wheeze (n), Crackles (Basilar bilateral), Rhonchi (n), Non-Labored Respirations, Accessory Resp Muscle Use (n) and Stridor (n)
GI: Soft, Non Distended and Non Tender
Neurology: Awake, Alert and No Motor Deficits
Skin: Warm, Good Color, Cyanosis (n), Jaundice (n) and Rash (n)
Labs/Micro/Reports
Lab Data
06/07/24 05:57
06/07/24 05:57
Microbiology
06/07/24 00:10 Urine Urine Culture - Final
06/06/24 20:35 Nasal Swab Influenza Types A & B (JOSIE) - Final
Negative for Influenza A & B, NAAT
Negative results must be combined with clinical observations
and patient history.
Nucleic Acid Amplification test (NAAT)performed on the
[employer] platform.
--- NOTE | 2024-06-08 11:51 | W.PN.HOSP.TC ---
Today's Communication/Plan
-
dc home
More than 30 minutes spent in discharge including
Final examination of the patient
Summarizing hospital stay
Instructions for continuing care to all relevant caregivers
Preparation of discharge records, prescriptions, and referral forms
Total time spent (in minutes): 33mins
Assessment / Plan
Assessment / Plan
ARF with hypoxia (pulse ox at home 60%) likely secondary to Bronchiectiasis flare with ?cap/?hf
--S/p IV dex 1 dose in the ED, no wheezing on exam, therefore, will not resume
-Mucolytics
-Incentive ifeanyi
-Wean o2 as tolerated
-IV Atb with ctx and doxy, transition to p.o. Vantin and doxycycline
-Consult Pulm
COPD unlikely an acute exacerbation
----No wheezing, hold systemic steroids for now
HTN
-continue antihypertensive
UTI
-recurrent
-recently on treatment
-UA +, UCx pending, admits to Frequency
-Continue Ctx
-Will need to follow up with Uro as an outpatient
Anticipated Discharge: Today
Subjective/Interval History
-
Date of Service: June 08, 2024
Seen and examined. No new complaints. No acute overnight events.
States feeling better
Objective Data
-
Vital Signs:
Vital Signs
Temp Pulse Resp BP Pulse Ox
98.1 F 87 18 130/61 99
06/08/24 11:29 06/08/24 11:30 06/08/24 11:30 06/08/24 11:29 06/08/24 11:30
I&O
06/07/24 06/08/24 06/09/24
06:59 06:59 06:59
Intake Total 960 / 960
Output Total 450 / 450
Balance 510 / 510
--- NOTE | 2024-06-08 11:54 | W.DCSUMMARY ---
Discharge Summary
Discharge Data
Date of Admission: 06/07/24
Date of Discharge: 06/08/24
-
Pending Results: No
Hospital Course
88y F with PMH significant for COPD and bronchiectasis
Presented with chills myalgias shortness of breath. Found to have low oxygen saturations started on supplemental O2. COVID and flu negative. Started on antibiotics for which additional 3 more days will be provided on discharge
(vantin/doxycycline). Unable to wean oxygen to room air, evaluated by pulmonary, recommended discharge home with home O2 and outpatient pulmonary follow-up. Continue mucolytic's breathing treatments. No indication for steroids at this time.
Continue Acapella and incentive spirometer use
Complained of dysuria. Has a known history of recurrent UTIs. Urine analysis culture sent. Being discharged home on vantin which can also cover UTI.
Should follow up with urology as an outpatient for recurrent UTI's
CXR
IMPRESSION:
Mild congestive heart failure.
2d echo
CONCLUSIONS
Left ventricular ejection fraction is 65-70%. Normal regional wall motion.
Normal right ventricular size and function.
No significant valvular disease.
No significant change since the prior study of 01/20/2021.
Discharge Plan
-
Patient Disposition: Home (Routine Discharge)
Discharge Diagnosis/Procedures: Acute hypoxemic respiratory failure secondary to bronchiectasis flare along with pneumonia
Activity Restrictions/Additional Instructions:
Presented with chills myalgias shortness of breath. Found to have low oxygen saturations started on supplemental O2. COVID and flu negative. Started on antibiotics for which additional 3 more days will be provided on discharge
(vantin/doxycycline). Unable to wean oxygen to room air, evaluated by pulmonary, recommended discharge home with home O2 and outpatient pulmonary follow-up. Continue mucolytic's breathing treatments. No indication for steroids at this time.
Continue Acapella and incentive spirometer use
Complained of dysuria. Has a known history of recurrent UTIs. Urine analysis culture sent. Being discharged home on vantin which can also cover UTI.
Should follow up with urology as an outpatient for recurrent UTI's
CXR
IMPRESSION:
Mild congestive heart failure.
2d echo
CONCLUSIONS
Left ventricular ejection fraction is 65-70%. Normal regional wall motion.
Normal right ventricular size and function.
No significant valvular disease.
No significant change since the prior study of 01/20/2021.
Referrals:
Josette Sigala MD [Family Provider] -
Ac Alves MD [Active] - in two to four weeks
Prescriptions:
New
doxycycline hyclate 100 mg Capsule
100 mg PO Q12 3 Days Qty: 6 0RF
cefpodoxime 200 mg tablet
200 mg PO BID 3 Days Qty: 6 0RF
Continued
biotin 5 MG capsule
5 mg PO DAILY Qty: 0
B-complex with vitamin C 1 CAPLET tablet
1 cap PO DAILY Qty: 0
lzuus-[id number]-dgt-tiv-vgfvyrf-ast [MegaRed [place]-3 Krill Oil] 1 EACH capsule
1 ea PO DAILY Qty: 0
cholecalciferol (vitamin D3) 1,000 UNITS tablet
1,000 units PO DAILY
aspirin 81 MG tablet,delayed release (DR/EC)
81 mg PO DAILY
losartan 25 MG tablet
25 mg PO DAILY
guaifenesin [Mucinex] 1,200 MG tablet extended release 12hr
600 mg PO PRN PRN (Reason: cough)
Align (B.infantis) 4 MG capsule
4 mg PO DAILY
calcium carb-mag ox-zinc sulf 1 EACH tablet
1 ea PO DAILY
albuterol sulfate 90 mcg/actuation Hfa Aerosol Inhaler
2 puff INHALATION QID PRN (Reason: SOB/wheeze )
Trelegy Ellipta 100-62.5-25 mcg Blister With Device
1 inh INHALATION DAILY
Discontinued
nitrofurantoin 100 mg Capsule
100 mg PO BID
Patient Comments:
for UTI
Discharge Orders:
Discharge Patient (As Directed); Ordered 06/08/24
Ordered By: Steve Lazo
Discharge Date and Time
Print Language: SAMI
--- NOTE | 2024-06-08 12:48 | CM ---
Addendum entered by Millicent Gonzales 06/08/24 14:37:
Discharge order was cancelled. PT and OT ordered. Still waiting for O2 walk test order to pursue home O2 at discharge.
Original Note:
KELLY met with Josette Mahoney today to discuss need for O2 at home. Catalina feels weak and short of breath and she advised she has only walked to the bathroom with assistance. She does not feel that she is ready for discharge.
CM spoke with Josette Mahoney's daughter via telephone who also does not feel her mother is ready for discharge today, and are concerned that she will be right back to the hospital if she goes home too soon.
Request to MD for orders for O2 walk test, PT and OT to determine pt's ability to return home to her independent apartment.
Plan: CM will continue to pursue home O2 pending order and documentation from O2 walk test.
--- NOTE | 2024-06-08 15:13 | PN.CDI ---
CDI
- -
CDI:
Physician Documentation Request
Admit Date: 06/07/24 03:04
Dear Doctor Clifton,
Patient admitted with bronchiectasis flare and pneumonia.
06/08, 'Bronchiectasis flare with ?cap/?hf.'
Discharge Summary, 'CXR IMPRESSION: Mild congestive heart failure....2d echo CONCLUSIONS. Left ventricular ejection fraction is 65-70%. Normal regional wall motion..Normal right ventricular size and function. No significant valvular disease.'
Patient received IV Lasix on 06/07.
Please provide further specificity regarding the most likely type and acuity of CHF you are evaluating, treating or monitoring:
Acute diastolic CHF
Acute systolic CHF
No CHF present
Other
Use of terms such as suspected, likely, concern for, or probable (associated with a specific diagnosis that is being evaluated, monitored, or treated as if it exists) are acceptable and can be coded in the inpatient setting, when documented at the
time of discharge.
Thank you,
Josette RIOS,RN,CCDS
CDI Specialist
Available via [place] text
Please use your independent medical judgment in providing your response.
[2024-06-08] MEDS: ROCEPHIN 1000 MG IV (23:11)
[2024-06-08] MEDS: STERILE WATER FOR INJECTION 10 ML IV (23:11)
[2024-06-09 03:24] VITALS: BP 140/80
[2024-06-09 06:00] VITALS: BMI 27.8
[2024-06-09] MEDS: NON-FORMULARY ITEM 1 UNIT INH (07:24)
[2024-06-09] MEDS: DUONEB 3 ML INH ×2 (07:24→11:19)
[2024-06-09 07:55] VITALS: BP 151/76
--- NOTE | 2024-06-09 08:53 | W.PN.PUL3 ---
Today's Communication / Plan
-
Check ambulatory pulse oximetry prior to discharge
Sent home on course of antibiotics
Outpatient pulmonary follow-up will be arranged
Continue Trelegy 100mcg upon discharge
Patient being prepared for discharge home today. No additional recommendations at this time. Pulmonary service will now sign off. Please reconsult if there are any additional questions/concerns, or if patient's respiratory status deteriorates.
Assessment
-
88-year-old female with underlying COPD and bronchiectasis as well as hypertension, KALI, diverticular disease who presented with fevers, chills, myalgias and shortness of breath admitted with COPD/bronchiectasis flare-pulmonary consulted for
COPD/bronchiectasis 06/07/2024.
Impression:
COPD/bronchiectasis with acute exacerbation
Mucous plugs
Mild CHF-EF unknown
Leukocytosis-improving
Hyperglycemia
Conditions present prior to admission:
COPD-followed by Dr. Alves-maintained on Trelegy, Mucinex, and mucus clearing devices
Bronchiectasis.
Pulmonary nodule-3 mm right upper lobe incidental 2020 spinal stenosis.
Hypertension.
Diverticular disease.
History KALI-bronchoscopy 07/2018.
PMR.
GERD.
ESTEPHANIA.
Left TKA repair/redo. Right TKA. Left rotator cuff. Sigmoid resection for diverticulitis. Ventral hernia repair. Tonsillectomy. Cataracts.
Plan
Respiratory decompensation, likely a combination of COPD/bronchiectasis and possibly fluid overload/CHF
Respiratory status improving
Supplemental oxygen as needed-currently 1 L - 95% saturation
Assess discharge supplemental oxygen needs prior to discharge with ambulatory pulse oximetry
Trelogy 100mcg continues in addition to DuoNeb nebs as needed.
Observe off steroids for now
Mucolytics
And mucus clearing devices.
Continue vest therapy-reports minimal additional mucus production --> can stop today
Cultures reviewed
Influenza negative
Urine culture unrevealing
Sputum culture if able to produce
Empiric antibiotics-ceftriaxone and doxycycline.
Trend leukocytosis
Continue gentle diuresis
Monitor serum creatinine, intake, output, lower extremity edema and replace electrolytes as needed.
Echocardiogram 06/07/2024-EF 65-70%, no valvular disease
Follow blood sugar with goal >100 and <180
Insulin supplementation as needed.
DVT prophylaxis-on subcutaneous heparin.
Nutrition
Early mobilization
Outpatient pulmonary follow-up
Last seen by Dr. Alves 12/14/2023 and subsequently nurse practitioner-Lidia Russell 05/09/2024-Has appointment at 2:30 PM,Follow-up, sooner after this hospitalization
Patient being prepared for discharge home today. No additional recommendations at this time. Pulmonary service will now sign off. Thank you for allowing us to be involved in the care of this patient. Please reconsult if there are any additional
questions/concerns, or if patient's respiratory status deteriorates.
Diagnostic data:
Chest x-ray 05/15/2024-NAD
Chest x-ray 06/06/2024-mild CHF
CT chest 07/21/18-mild bronchiectasis inferior aspect of both lower lobes, right greater than left, stable compared to July 11, 2018 and progressed compared to January 2016, mild peripheral increased interstitial markings, likely mild interstitial
fibrosis without significant honeycombing.
Chest x-ray 05/27/20-NAD
Chest x-ray 12/08/20-[facility]-NAD
CT chest angiogram 12/08/20-[facility]-no acute pulmonary embolism, mosaic attenuation. The lungs, suspicious for air trapping or emphysema, 1.6 cm peripheral calcified splenic artery aneurysm, 2.1 cm left upper lobe renal cysts, 3 mm
right upper lobe nodule. .
CT chest 12/22/21-stable 2.5 mm right middle lobe pulmonary nodule-comparison made to 07/21/18, suspected benign, new 13 mm bleb superior segment left lower lobe, stable mild bronchiectasis middle aspects of both lower lobes worse on the right than the
left-patient notified.
CT abdomen and pelvis 06/01/24-1.4 cm at heavily rim calcified splenic artery aneurysm, severe diverticulosis mild inflammatory interstitial pneumonitis and bronchiectasis in the lower lobes
PFT 05/09/24- FVC 1.76 or 90%, FEV1 1.51 or 106%, Ratio 86. TLC 2.97 or 66%, DLCO 9.02 or 52%, DLCO/VA 66%.
Bronchoscopy 08/02/18-Normal airway exam, thin white secretions throughout both lower lobes,
Bronchoalveolar lavage left lower lobe-KALI cultured, fungal negative, usual respiratory kezia
Eosinophils 12/27/20-200
Bronched 08/02/18- KALI
Echocardiogram 01/20/21-EF 60-65%, no significant valve disease,.
Total time spent today was 36 minutes for this encounter. Time includes reviewing laboratory test/imaging results, reviewing pertinent medical records, obtaining and reviewing medical history, performing an appropriate exam, ordering medications,
tests and procedures. Time also includes documentation of this encounter, coordinating patient care and communicating with other healthcare professionals. Total time does not include separately billed tests performed on this date of service.
Subjective Data
-
Date of Service:
Date of Service: June 09, 2024
Chief Complaint: Pulmonary Follow Up and Dyspnea Follow Up
Subjective:
Seen and evaluated this morning. Feels weak overall. No acute events reported from overnight. Currently on 1 L/min and saturating 95%. She currently denies chest pain, ANTONIO, abdominal pain, nausea, fevers or chills.
Review of Systems
General: Other (Negative unless mentioned above)
Objective Data
Data Reviewed
Vital Signs / I&O / Oxygen:
Vital Signs
Temp Pulse Resp BP Pulse Ox
97.8 F 77 20 151/76 95
06/09/24 07:55 06/09/24 07:55 06/09/24 07:55 06/09/24 09:27 06/09/24 07:55
Intake and Output
06/08/24 06/09/24 06/10/24
06:59 06:59 06:59
Intake Total 960 / 960 1999 / 1999
Output Total 450 / 450 1850 / 1850
Balance 510 / 510 150 / 150
SaO2 95
Nasal Cannula flow liters per 1
minute
Physical Exam
General: Respiratory Distress (n), Comfortable, Chills (n) and Sweats (n)
HEENT: Normocephalic, Anicteric and Moist Mucous Membranes
Cardiovascular: S1-S2 and Peripheral Edema (n)
Respiratory: Wheeze (n), Crackles (Bibasilar), Rhonchi (n), Non-Labored Respirations, Accessory Resp Muscle Use (n) and Stridor (n)
GI: Soft, Non Distended, Non Tender and Normal Bowel Sounds
Neurology: Awake, Alert and Tremors (n)
Skin: Warm, Dry, Cyanosis (n), Jaundice (n) and Rash (n)
Labs/Micro/Reports
Lab Data
06/07/24 05:57
06/07/24 05:57
Microbiology
06/07/24 00:10 Urine Urine Culture - Final
06/06/24 20:35 Nasal Swab Influenza Types A & B (JOSIE) - Final
Negative for Influenza A & B, NAAT
Negative results must be combined with clinical observations
and patient history.
Nucleic Acid Amplification test (NAAT)performed on the
Tern platform.
[2024-06-09] MEDS: MUCINEX 1200 MG PO (09:26)
[2024-06-09] MEDS: ASPIR LOW (ENTERIC COATED) 81 MG PO (09:26)
[2024-06-09] MEDS: VIBRAMYCIN 100 MG PO (09:27)
[2024-06-09] MEDS: HEPARIN 5000 UNITS SC (09:27)
[2024-06-09] MEDS: COZAAR 25 MG PO (09:27)
[2024-06-09 11:39] VITALS: BP 128/67
--- NOTE | 2024-06-09 12:25 | CM ---
Addendum entered by Erlinda Batres RN 06/09/24 12:44:
clarification- Ronel is patient's daughter in law.
Original Note:
Oatient on O2 2L. PT recommends HH. Home O2 Assessment completed -orders for O2 2L with exertion per Dr Lazo.
Spoke with Corie Siddiqui; O2 order form and referral provided for home O2 concentrator. Portable tank to be delivered to hospital room today.
Spoke with Britney, extermination inspector coordinator [employer] Veloz x4 (ph [phone]) in an effort to arrange VN through [facility], and also spoke with [facility] answering service x2 (ph [phone]); she connected me to Fernando, field nurse who was not able
to take the referral. On 4th phone call Britney says that no one is extermination inspector today for [facility].
Spoke with [facility] (cell [phone], fax [phone]); they are able to accept the referral for SN/PT/OT..
Met with patient and spoke with daughter Ronel, who is a school nurse; both agree to d/c home today. IMM completed. 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 Daughter is off work for the holidays through the [employer] , and will be able to stay
with her mother for a few days. Patient & daughter agree to home O2 through [employer] and are aware portable O2 will be delivered to the room today and concentrator to the home. They are aware CM could not obtain acceptance by [facility] and that
[facility] has accepted and can see the patient at home. Daughter will provide transport home today.
Plan home today with Home O2 through [employer], with [facility], with daughter.
--- NOTE | 2024-06-09 13:40 | W.PN.HOSP.TC ---
Today's Communication/Plan
-
As oxygen requirements continue to improve. Will continue antibiotics with Vantin and doxycycline.
Will discharge home with home O2
Will need outpatient follow-up with pulmonary
Recurrent UTIs. Outpatient urology follow up
More than 30 minutes spent in discharge including
Final examination of the patient
Summarizing hospital stay
Instructions for continuing care to all relevant caregivers
Preparation of discharge records, prescriptions, and referral forms
Total time spent (in minutes): 33mins
Assessment / Plan
Assessment / Plan
ARF with hypoxia (pulse ox at home 60%) likely secondary to Bronchiectiasis flare with ?cap/?hf
--S/p IV dex 1 dose in the ED, no wheezing on exam, therefore, will not resume
-Mucolytics
-Incentive ifeanyi
-Wean o2 as tolerated
-IV Atb with ctx and doxy, transition to p.o. Vantin and doxycycline
-Consult Pulm
COPD unlikely an acute exacerbation
----No wheezing, hold systemic steroids for now
HTN
-continue antihypertensive
UTI
-recurrent
-recently on treatment
-UA +, UCx pending, admits to Frequency
-Continue Ctx
-Will need to follow up with Uro as an outpatient
Anticipated Discharge: Today
Subjective/Interval History
-
Date of Service: June 09, 2024
Seen and examined. No new complaints. No acute overnight events.
Concerned about going home as she feels weak
Notified her that she was evaluated by physical therapy that recommended home health
Ambulated with respiratory found to have SpO2 of 87%. Oxygen ordered.
Notified her and her daughter that yesterday on 06/08/2024 pulmonary cleared for discharge home.
Objective Data
-
Vital Signs:
Vital Signs
Temp Pulse Resp BP Pulse Ox
97.7 F 67 20 128/67 98
06/09/24 11:39 06/09/24 11:39 06/09/24 11:39 06/09/24 11:39 06/09/24 11:39
I&O
06/08/24 06/09/24 06/10/24
06:59 06:59 06:59
Intake Total 960 / 960 1999 / 1999
Output Total 450 / 450 1850 / 1850
Balance 510 / 510 150 / 150
Physical Exam
-
General: Well Developed and Well Nourished
HEENT: Normocephalic and Atraumatic
Respiratory: Rhonchi
Cardiac: Regular Rhythm and S1/S2
GI: Soft, Nontender, Nondistended and Normal Bowel Sounds
Neuro: Awake, Alert, Oriented and AO x 3
Psych: Calm
--- NOTE | 2024-06-09 14:00 | W.DCSUMMARY ---
Addendum entered and electronically signed by Steve Lazo MD 06/09/24 17:24:
No CHF present
Original Note:
Discharge Summary
Discharge Data
Date of Admission: 06/07/24
Date of Discharge: 06/09/24
-
Pending Results: No
Hospital Course
88y F with PMH significant for COPD and bronchiectasis
Presented with chills myalgias shortness of breath. Found to have low oxygen saturations started on supplemental O2. COVID and flu negative. Started on antibiotics for which additional 3 more days will be provided on discharge
(vantin/doxycycline). Unable to wean oxygen to room air, evaluated by pulmonary, recommended discharge home with home O2 and outpatient pulmonary follow-up. Continue mucolytic's breathing treatments. No indication for steroids at this time.
Continue Acapella and incentive spirometer use
Complained of dysuria. Has a known history of recurrent UTIs. Urine analysis culture sent. Being discharged home on vantin which can also cover UTI.
Should follow up with urology as an outpatient for recurrent UTI's
CXR
IMPRESSION:
Mild congestive heart failure.
2d echo
CONCLUSIONS
Left ventricular ejection fraction is 65-70%. Normal regional wall motion.
Normal right ventricular size and function.
No significant valvular disease.
No significant change since the prior study of 01/20/2021.
Discharge Plan
-
Patient Disposition: Home (Routine Discharge)
Discharge Diagnosis/Procedures: Acute hypoxemic respiratory failure secondary to bronchiectasis flare along with pneumonia
Activity Restrictions/Additional Instructions:
Presented with chills myalgias shortness of breath. Found to have low oxygen saturations started on supplemental O2. COVID and flu negative. Started on antibiotics for which additional 3 more days will be provided on discharge
(vantin/doxycycline). Unable to wean oxygen to room air, evaluated by pulmonary, recommended discharge home with home O2 and outpatient pulmonary follow-up. Continue mucolytic's breathing treatments. No indication for steroids at this time.
Continue Acapella and incentive spirometer use
Complained of dysuria. Has a known history of recurrent UTIs. Urine analysis culture sent. Being discharged home on vantin which can also cover UTI.
Should follow up with urology as an outpatient for recurrent UTI's
CXR
IMPRESSION:
Mild congestive heart failure.
2d echo
CONCLUSIONS
Left ventricular ejection fraction is 65-70%. Normal regional wall motion.
Normal right ventricular size and function.
No significant valvular disease.
No significant change since the prior study of 01/20/2021.
Referrals:
Josette Sigala MD [Family Provider] -
Ac Alves MD [Active] - in two to four weeks
Prescriptions:
New
doxycycline hyclate 100 mg Capsule
100 mg PO Q12 3 Days Qty: 6 0RF
cefpodoxime 200 mg tablet
200 mg PO BID 3 Days Qty: 6 0RF
Continued
biotin 5 MG capsule
5 mg PO DAILY Qty: 0
B-complex with vitamin C 1 CAPLET tablet
1 cap PO DAILY Qty: 0
[id number]-ast [MegaRed [place]-3 Krill Oil] 1 EACH capsule
1 ea PO DAILY Qty: 0
cholecalciferol (vitamin D3) 1,000 UNITS tablet
1,000 units PO DAILY
aspirin 81 MG tablet,delayed release (DR/EC)
81 mg PO DAILY
losartan 25 MG tablet
25 mg PO DAILY
guaifenesin [Mucinex] 1,200 MG tablet extended release 12hr
600 mg PO PRN PRN (Reason: cough)
Align (B.infantis) 4 MG capsule
4 mg PO DAILY
calcium carb-mag ox-zinc sulf 1 EACH tablet
1 ea PO DAILY
albuterol sulfate 90 mcg/actuation Hfa Aerosol Inhaler
2 puff INHALATION QID PRN (Reason: SOB/wheeze )
Trelegy Ellipta 100-62.5-25 mcg Blister With Device
1 inh INHALATION DAILY
Discontinued
nitrofurantoin 100 mg Capsule
100 mg PO BID
Patient Comments:
for UTI
Discharge Orders:
Discharge Patient (As Directed); Ordered 06/09/24
Ordered By: Steve Lazo
Discharge Date and Time
Print Language: MACEDONIAN
== END 2024-06-09 14:53 | disposition home health service (06) | DRG 193 ==
LOC: 4 EAST ACU 03:04
PROVIDERS: Physician Assistant; ADMITTING PHYSICIAN Hospitalist; ATTENDING PHYSICIAN Hospitalist; EMERGENCY PHYSICIAN Emergency Medicine; FAMILY PHYSICIAN Internal Medicine; OTHER PHYSICIAN Internal Medicine Critical Care Medicine
DX: J18.9 Pneumonia, unspecified organism (principal); J96.01 Acute respiratory failure with hypoxia; J44.0 Chronic obstructive pulmonary disease with (acute) lower respiratory infection; J47.1 Bronchiectasis with (acute) exacerbation; J47.0 Bronchiectasis with acute lower respiratory infection; N39.0 Urinary tract infection, site not specified; Z87.891 Personal history of nicotine dependence; Z11.52 Encounter for screening for COVID-19; Z59.89 Other problems related to housing and economic circumstances
CPT/HCPCS: 71046; 80048; 80053; 81003; 81015; 83880; 84443; 84484; 85025; 85027; 87086; 87502; 87811; 93005; 93306; 94640; 94669; 94761; 96374; 96375; 97116; 97162; 97165; 99285

== ENCOUNTER → 2024-09-17 13:54 | Outpatient (REF) | payer OTHER, SELFPAY ==
[2024-09-17 15:04] LABS: % Basophils 0.9 % (0-2); % Eosinophils 2.4 % (0-6); % Immature Granulocytes 0.3 % (0-0.5); % Lymphocytes 27.3 % (20.5-51.1); % Monocytes 6.5 % (1.7-9.3); % Neutrophils 62.6 % (42.2-75.2); Absolute Basophils 0.1 10^3/uL (0-0.2); Absolute Eosinophils 0.1 10^3/uL (0-0.7); Absolute Lymphocytes 1.6 10^3/uL (1.2-3.4); Absolute Monocytes 0.4 10^3/uL (0.1-0.6); Absolute Neutrophils 3.7 10^3/uL (1.4-6.5); Hematocrit 37.3 % (37.0-47.0); Hemoglobin 12.4 g/dL (12.0-16.0); Mean Corp Hgb Conc. 33.2 g/dL (33.0-37.0); Mean Corpuscular Hgb 29.7 pg (27.0-31.0); Mean Corpuscular Volume 89.2 fL (81.0-99.0); Mean Platelet Volume 10.3 fL (7.4-10.4); Nucleated Red Blood Cells % 0 %; Platelet Count 159 10^3/uL (130-400); Red Blood Cell Count 4.18 10^6/uL (4.20-5.40); Red Cell Dist. Width 13.2 % (11.5-14.5); White Blood Cell Count 5.9 10^3/uL (4.8-10.8)
[2024-09-17 15:26] LABS: ALT (SGPT) 18 U/L (0-35); AST (SGOT) 23 U/L (14-36); Albumin 4.6 g/dl (3.5-5.0); Alkaline Phosphatase 90 U/L (38-126); Blood Urea Nitrogen 19 mg/dl (7-17); Calcium 9.7 mg/dl (8.4-10.2); Carbon Dioxide 27 mmol/L (22-30); Chloride 99 mmol/L (98-107); Glucose 96 mg/dl (70-99); HDL Cholesterol 65 mg/dl; LDL Cholesterol, Calculated 79 mg/dl; Potassium 4.4 mmol/L (3.5-5.1); Sodium 134 mmol/L (135-145); Total Bilirubin 0.8 mg/dl (0.2-1.3); Total Cholesterol 170 mg/dl (50-199); Total Protein 7.3 g/dl (6.3-8.2); Triglyceride 130 mg/dl (10-149); Very Low Density Lipoprotein 26 mg/dl (0-30); eGFR > 60.00
[2024-09-17 15:56] LABS: TSH Reflex To Free T4 < 0.02 uIU/ml (0.47-4.68)
[2024-09-17 16:15] LABS: Vitamin B12 676 pg/ml (239-931)
[2024-09-17 16:23] LABS: Free T4 1.15 ng/dl (0.78-2.19)
[2024-09-17 19:15] LABS: Urine Albumin 1+ (Neg - Trace); Urine Bilirubin Negative (Negative); Urine Character Clear (Clear); Urine Color Yellow; Urine Glucose Negative (Negative); Urine Ketone Negative (Negative); Urine Leukocyte 3+ (Negative); Urine Nitrite Negative (Negative); Urine Occult Blood 1+ (Negative); Urine Urobilinogen Negative (Neg - 1+)
[2024-09-17 19:22] LABS: Urine Red Blood Cell 0-2 /HPF (0-2)
[2024-09-17 19:23] LABS: Urine Bacteria Many (Negative); Urine White Cell >100 /HPF (0-5)
== END ==
LOC: REG 13:54
PROVIDERS: ATTENDING PHYSICIAN Internal Medicine; REFERRING PHYSICIAN Physician Assistant
DX: I10 Essential (primary) hypertension (principal); J44.9 Chronic obstructive pulmonary disease, unspecified; J98.4 Other disorders of lung; E05.90 Thyrotoxicosis, unspecified without thyrotoxic crisis or storm; R53.83 Other fatigue; R73.9 Hyperglycemia, unspecified; Z79.899 Other long term (current) drug therapy; N39.0 Urinary tract infection, site not specified
CPT/HCPCS: 36415; 80053; 80061; 81003; 81015; 82306; 82607; 84439; 84443; 85025; 87077; 87086; 87186

== ENCOUNTER → 2025-04-19 16:22 | Outpatient (REF) | payer OTHER, SELFPAY | LOC: RAD 16:22 | PROVIDERS: ATTENDING PHYSICIAN Nurse Practitioner Adult Health; FAMILY PHYSICIAN Internal Medicine | DX: M79.605 Pain in left leg (principal) | CPT/HCPCS: 93971 ==